=== PATIENT | male | born 1980 | race African-American/Black ===

== ENCOUNTER 2025-03-02 01:36 | Emergency (ER) | payer BC, OTHER, SELFPAY ==
[2025-03-02] MEDS ORDERED: Bacitracin 1 PK ONE (02:04)
== END 2025-03-02 02:20 | disposition home or self-care (01) ==
LOC: MADERS 01:36
DX: S50.12XA Contusion of left forearm, initial encounter (principal); F17.210 Nicotine dependence, cigarettes, uncomplicated; F17.290 Nicotine dependence, other tobacco product, uncomplicated; V49.40XA Driver injured in collision with unspecified motor vehicles in traffic accident, initial encounter; Y92.415 Exit ramp or entrance ramp of street or highway as the place of occurrence of the external cause
CPT/HCPCS: 99284